=== PATIENT | male | born 1990 | race Caucasian/White ===

== ENCOUNTER 2017-03-31 00:26 | Emergency (ER) | payer OTHER ==
[~2017-03-31] VITALS: Ht 172.7 cm; Wt 102.3 kg
[~2017-03-31 00:26] MED LIST: DARV PO; SULF1TAB47 PO; Z.0.NO CURRENT MEDS
[2017-03-31 00:29] VITALS: BP 136/94; PULSE 84; RESP 16; TEMP 98; O2SAT 95
[2017-03-31 01:13] VITALS: BP 136/94; PULSE 84; RESP 16; TEMP 98; O2SAT 95
[2017-03-31] MEDS ORDERED: SODIUM CHLOR 0.9% 1000 ML INJ 1,000 ML IV ONE (01:35)
--- NOTE | 2017-03-31 01:40 | PD ---
HPI Chief Complaint: Flank/Kidney Pain Time Seen by Provider: 01:29 Travel History International Travel<30 days: No Contact w/Intl Traveler<30days: No Traveled to known affect area: No History of Present Illness HPI The patient is a 26-year-old male that complains of sharp, stabbing left-sided pain with vomiting tonight beginning around 10:30 PM. The pain is only on the left. He has never had a history of kidney stones. His only medical problem is mild developmental delay. He denies any fever. PFS Past Medical History Developmental Delay: Yes Diminished Hearing: No Neurologic: Yes (DEVELOPMENTALLY DELAYED) Immunizations Current: Yes Tetanus Vaccination: Unknown Influenza Vaccination: Yes ?: Not Past Surgical History Body Medical Devices: DEVELOPMENTALLY DELAYED Tonsillectomy: Yes Social History Alcohol Use: No Tobacco Use: No Substance Use: No Allergies-Medications (Allergen,Severity, Reaction): Coded Allergies: No Known Allergies (Verified , 01/23/08) Reported Meds & Prescriptions Reported Meds & Active Scripts Active Darvocet-N 100 (Propoxyphene Napsylate/Acetam) Tab 1 Tab PO Q6HPRN FOR PAIN Bactrim Ds (Trimethoprim/Sulfamethoxazole) Tab 1 Tab PO BID Reported No Current Meds (Miscellaneous Medication) Misc Review of Systems Except as stated in HPI: all other systems reviewed are Neg Physical Exam Narrative GENERAL: The patient is alert, oriented 3 in moderate apparent distress with his left flank pain. His vital signs show blood pressure 136/94 but are otherwise normal. SKIN: Focused skin assessment warm/dry. 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 HEAD: Atraumatic. Normocephalic. EYES: Pupils equal and round. No scleral icterus. No injection or drainage. ENT: No nasal bleeding or discharge. Mucous membranes pink and moist. NECK: Trachea midline. No JVD. CARDIOVASCULAR: Regular rate and rhythm. No murmur appreciated. RESPIRATORY: No accessory muscle use. Clear to auscultation. Breath sounds equal bilaterally. GASTROINTESTINAL: Abdomen soft, with tenderness in the left flank to direct palpation, nondistended. Hepatic and splenic margins not palpable. No guarding or rebound is present. MUSCULOSKELETAL: No obvious deformities. No clubbing. No cyanosis. No edema. NEUROLOGICAL: Awake and alert. No obvious cranial nerve deficits. Motor grossly within normal limits. Normal speech. PSYCHIATRIC: Appropriate mood and affect; insight and judgment normal. Data Data Last Documented VS Vital Signs Date Time Temp Pulse Resp B/P (MAP) Pulse Ox O2 Delivery O2 Flow Rate FiO2 03/31/17 01:13 98.0 84 16 136/94 (108) 95 Orders Orders Urinalysis - C+S If Indicated (03/31/17 00:59) Complete Blood Count With Diff (03/31/17 01:35) Basic Metabolic Panel (Bmp) (03/31/17 01:35) Ct Abd/Pel W/O Iv Contrast (03/31/17 01:35) Ecg Monitoring (03/31/17 01:35) Iv Access Insert/Monitor (03/31/17 01:35) Sodium Chloride 0.9% Flush (Ns Flush) (03/31/17 01:45) Sodium Chlor 0.9% 1000 Ml Inj (Ns 1000 M (03/31/17 01:35) Labs Laboratory Tests Test 03/31/17 02:15 03/31/17 03:10 White Blood Count 12.1 TH/MM3 Red Blood Count 4.84 MIL/MM3 Hemoglobin 13.3 GM/DL Hematocrit 39.4 % Mean Corpuscular Volume 81.4 FL Mean Corpuscular Hemoglobin 27.5 PG Mean Corpuscular Hemoglobin Concent 33.8 % Red Cell Distribution Width 12.6 % Platelet Count 301 TH/MM3 Mean Platelet Volume 7.6 FL Neutrophils (%) (Auto) 84.1 % Lymphocytes (%) (Auto) 10.3 % Monocytes (%) (Auto) 4.4 % Eosinophils (%) (Auto) 0.4 % Basophils (%) (Auto) 0.8 % Neutrophils # (Auto) 10.3 TH/MM3 Lymphocytes # (Auto) 1.2 TH/MM3 Monocytes # (Auto) 0.5 TH/MM3 Eosinophils # (Auto) 0.0 TH/MM3 Basophils # (Auto) 0.1 TH/MM3 CBC Comment DIFF FINAL Differential Comment Blood Urea Nitrogen 14 MG/DL Creatinine 1.10 MG/DL Random Glucose 135 MG/DL Calcium Level 8.5 MG/DL Sodium Level 137 MEQ/L Potassium Level 3.8 MEQ/L Chloride Level 103 MEQ/L Carbon Dioxide Level 26.9 MEQ/L Anion Gap 7 MEQ/L Estimat Glomerular Filtration Rate 80 ML/MIN Urine Color YELLOW Urine Turbidity SLIGHT Urine pH 5.5 Urine Specific Tarrs 1.024 Urine Protein NEG mg/dL Urine Glucose (UA) NEG mg/dL Urine Ketones NEG mg/dL Urine Occult Blood LARGE Urine Nitrite NEG Urine Bilirubin NEG Urine Leukocyte Esterase NEG Urine RBC 100-200 /hpf Urine Squamous Epithelial Cells 0-5 /hpf Urine Hyaline Casts 0-2 /lpf Urine Mucus MOD /lpf Microscopic Urinalysis Comment CULT NOT INDICATED MDM Medical Decision Making Medical Screen Exam Complete: Yes Emergency Medical Condition: Yes Medical Record Reviewed: Yes Interpretation(s) The CT abdomen/pelvis without IV contrast shows a 2 mm stone at the left UVJ. Differential Diagnosis Left ureteral stone, urinary tract infection, musculoskeletal pain, colitis Narrative Course It is now 0338 in the morning and the patient is pain-free. It appears that the patient has passed is 2 mm left ureteral stone. He has absolutely no tenderness in this area now. Physician Communication Physician Communication Drink plenty of liquids and take plain Motrin for pain. Follow-up with your primary care physician, at this time he should have no more problems with the kidney stone. Avoid peanut butter because this helps to create stones. Diagnosis Primary Impression: Left ureteral calculus Additional Instructions: Probably liquids and follow-up with her primary care physician. He should not have any more problems with this particular kidney stone. Make sure you stay hydrated to avoid forming stones in the future. Med/Other Pt SpecificInfo: No Change to Meds Disposition: 01 DISCHARGE HOME Condition: Stable Leonardo Murphy MD Mar 31, 2017 01:40
[2017-03-31] MEDS ORDERED: SODIUM CHLORIDE 0.9% FLUSH 10 ML FLUSH IVF PRN (01:45)
[2017-03-31 02:49] LABS: AUTOMATED NEUTROPHIL # 10.3 TH/MM3 (1.8-7.7); BASOPHIL # 0.1 TH/MM3 (0-0.2); BASOPHIL % 0.8 % (0.0-2.0); EOSINOPHIL % 0.4 % (0.0-4.0); HEMATOCRIT 39.4 % (39.0-51.0); HEMO FLAGS DIFF FINAL; LYMPH % 10.3 % (9.0-44.0); LYMPHOCYTE # 1.2 TH/MM3 (1.0-4.8); MEAN CELL VOLUME 81.4 FL (80.0-100.0); MEAN CORPUSCULAR HEMOGLOBIN 27.5 PG (27.0-34.0); MEAN CORPUSCULAR HGB CONC 33.8 % (32.0-36.0); MONO % 4.4 % (0.0-8.0); NEUT % 84.1 % (16.0-70.0); PLATELET COUNT 301 TH/MM3 (150-450); RED BLOOD COUNT 4.84 MIL/MM3 (4.50-5.90); RED CELL DISTRIBUTION WIDTH 12.6 % (11.6-17.2); WHITE BLOOD COUNT 12.1 TH/MM3 (4.0-11.0)
[2017-03-31 02:57] LABS: POTASSIUM 3.8 MEQ/L (3.5-5.1)
[2017-03-31 03:00] LABS: BICARBONATE 26.9 MEQ/L (21.0-32.0)
--- NOTE | 2017-03-31 03:07 | RADRPT ---
EXAM DATE/TIME: 03/31/2017 02:25 [facility] COMPARISON: No previous studies available for comparison. INDICATIONS : Left flank and back pain. ORAL CONTRAST: No oral contrast ingested. RADIATION DOSE: 17.54 CTDIvol (mGy) MEDICAL HISTORY : None SURGICAL HISTORY : None. ENCOUNTER: Initial ACUITY: 1 day PAIN SCALE: 7/10 LOCATION: Left flank TECHNIQUE: Volumetric scanning of the abdomen and pelvis was performed. Using automated exposure control and ad justment of the mA and/or kV according to patient size, radiation dose was kept as low as reasonably achievable to obtain optimal diagnostic quality images. DICOM format image data is available electro nically for review and comparison. FINDINGS: LOWER LUNGS: The visualized lower lungs are clear. LIVER: Visualized portions are unremarkable. SPLEEN: Normal size without lesion. PANCREAS: Within normal limits. KIDNEYS: Minimal left hydronephrosis. 1.5-2 mm stone at the left ureterovesical junction. Right kidney is unre markable. ADRENAL GLANDS: Within normal limits. VASCULAR: There is no aortic aneurysm. BOWEL/MESENTERY: The stomach, small bowel, and colon demonstrate no acute abnormality. There is no free intraperitone al air or fluid. ABDOMINAL WALL: Within normal limits. RETROPERITONEUM: There is no lymphadenopathy. BLADDER: No wall thickening or mass. REPRODUCTIVE: Within normal limits. INGUINAL: There is no lymphadenopathy or hernia. MUSCULOSKELETAL: Within normal limits for patient age. CONCLUSION: 2 mm stone at the left ureterovesical junction. Corky Sanderson MD on March 31, 2017 at 3:02 Board Certified Radiologist. This report was verified electronically.
[2017-03-31 03:26] LABS: BLOOD, URINE LARGE (NEG); GLUCOSE,URINE NEG (NEG); KETONE, URINE NEG (NEG); NITRITE,URINE NEG (NEG); PH, URINE 5.5 (5.0-8.5)
[2017-03-31 03:33] LABS: MUCUS URINE MOD /lpf (OCC); RBC, URINE 100-200 /hpf (0-3); URINE COLOR YELLOW (YELLW/STRAW)
[2017-03-31 03:34] LABS: COMMENT (UR) CULT NOT INDICATED; CULTURE IF INDICATED CULT NOT INDICATED; HYALINE CAST, URINE 0-2 /lpf (RARE); SQUAMOUS EPITHELIAL CELL URINE 0-5 /hpf (0-5)
[2017-03-31 03:43] VITALS: BP 134/75; PULSE 78; RESP 15; TEMP 98.6; O2SAT 97
== END 2017-03-31 03:52 | disposition home or self-care (01) ==
LOC: PHED 00:26
DX: N20.1 Calculus of ureter (principal)
CPT/HCPCS: 74176; 80048; 81001; 85025; 96360; 99285; J7030